=== PATIENT | female | born 1950 | race African-American/Black ===

== ENCOUNTER 2016-12-27 07:54 | Emergency (ER) | payer OTHER ==
[~2016-12-27] VITALS: Ht 162.6 cm; Wt 78.2 kg
[~2016-12-27 07:54] MED LIST: ALBU2.5V3 NEB; ALBU8.5H3 INH; AMLO-147 PO; ASPI81TA3 PO; HYDR-902 PO; LOSA1TAB19 PO; METF500T4 PO; TYL500 PO
[2016-12-27 07:57] VITALS: Ht 162.6 cm; Wt 78.2 kg
[2016-12-27] MEDS ORDERED: IBUP400T22 PO (08:53)
[2016-12-27] MEDS ORDERED: SOD CHLORIDE 0.9% 1,000 ML IV STA (09:49)
[2016-12-27] MEDS ORDERED: ALBUTEROL 0.5% (NEB) 2.5 MG/0.5 ML AMP INH STA (09:49)
[2016-12-27] MEDS ORDERED: LIDOCAINE/MYLANTA 40 ML BTL PO STA (09:49)
[2016-12-27] MEDS ORDERED: IPRATROPIUM (NEB) 0.5 MG/2.5 ML AMP INH STA (09:49)
[2016-12-27] MEDS ORDERED: BELLADONNA/PHENOBARBITAL TAB PO STA (09:49)
[2016-12-27] MEDS ORDERED: predniSONE 20 MG TAB PO STA (09:49)
[2016-12-27] MEDS ORDERED: KETOROLAC 15 MG INJ IV STA (09:49)
[2016-12-27] MEDS ORDERED: LEVOFLOXACIN 750MG/D5W (PMX) 150 ML IVPB ONE (10:00)
[2016-12-27 10:39] LABS: ADD SCAN DIFF NO
--- NOTE | 2016-12-27 10:47 | RADRPT ---
PROCEDURE: XR Chest. CLINICAL INDICATION: Hemoptysis TECHNIQUE: Chest AP portable. COMPARISON: 08/13/2016 FINDINGS: The mediastinal structures are unremarkable. There is calcification of the thoracic aorta (consiste nt with atherosclerosis). There is mild cardiomegaly. The pulmonary vascularity is normal. There is mild bibasilar subsegmental atelectasis. The pleural spaces are unremarkable. The osseous structur es are unremarkable. IMPRESSION: Mild cardiomegaly Mild bibasilar subsegmental atelectasis RPTAT: HGDB .Quinn Zapien MD, Date Time Electronically viewed and signed by .Quinn Zapien MD, on 12/27/2016 10:47 .B/
[2016-12-27 10:51] LABS: BASOPHILS % 0.8 % (0.0-2.0); EOSINOPHILS # 0.1 10^3/ul (0.0-0.5); EOSINOPHILS % 2.9 % (0.0-7.0); HEMATOCRIT 34.9 % (37.0-47.0); HEMOGLOBIN 10.4 g/dl (12.0-16.0); LYMPHOCYTES # 1.8 10^3/ul (0.8-2.9); LYMPHOCYTES % 37.1 % (15.0-51.0); MEAN CORPUSCULAR HEMOGLOBIN 24.9 pg (29.0-33.0); MEAN CORPUSCULAR HGB CONC 29.8 g/dl (32.0-37.0); MEAN CORPUSCULAR VOLUME 83.5 fl (82.0-101.0); MEAN PLATELET VOLUME 11.8 fl (7.4-10.4); MONOCYTE # 0.4 10^3/ul (0.3-0.9); MONOCYTES % 7.8 % (0.0-11.0); NEUTROPHIL # 2.5 10^3/ul (1.6-7.5); NEUTROPHILS % 51.2 % (39.0-77.0); PLATELET COUNT 347 10^3/UL (140-415); RED BLOOD COUNT 4.18 10^6/ul (4.20-5.40); RED CELL DISTRIBUTION WIDTH 14.1 % (11.5-14.5); WHITE BLOOD COUNT 4.9 10^3/ul (4.8-10.8)
--- NOTE | 2016-12-27 10:58 | RADRPT ---
PROCEDURE: CT Brain without. CLINICAL INDICATION: Headache, nosebleed. History of aneurysm repair. TECHNIQUE: A CT of the brain was performed on multidetector high-resolution CT scanner utilizing a xial sections from the skull base through the vertex without contrast. The scan was reviewed in sof t tissue brain and high frequency resolution bone algorithm windows. Images were reviewed on a high -resolution PACS workstation. One or more the following does reduction techniques were utilized: Aut omated exposure control, adjustment of the mA/ or kV according to patient's size, or use of iterativ e reconstruction technique. The exam CTDI = 44.81 mGy and the DLP = 720.23 mGy-cm. COMPARISON: Brain CT 09/24/2016. Brain CT 03/19/2016. FINDINGS: The ventricles and sulci are mildly prominent indicative of volume loss. There is no intracranial h emorrhage, mass effect or midline shift. No abnormal intra-axial or extra-axial fluid collections a re seen. The nguyen/white matter differentiation is preserved. 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 There are mild scattered foci of hypoattenuation in the white matter, which are nonspecific in etiol ogy but likely reflect chronic small vessel ischemic changes. There are mild intracranial vascular calcifications consistent with atherosclerosis. The visualized paranasal sinuses are essentially lashonda ar. IMPRESSION: 1. No acute intracranial hemorrhage, transcortical infarction or mass effect. 2. Mild intracranial atherosclerosis and chronic small vessel ischemic changes. 3. Mild generalized cerebral volume loss. 4. 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 RPTAT: HH .Blair Vargas MD, MD Date Time Electronically viewed and signed by .Blair Vargas MD, MD on 12/27/2016 10:58 .N/
[2016-12-27 11:01] VITALS: TEMP 98.6
[2016-12-27 11:01] LABS: CHLORIDE 105 mmol/L (97-110)
[2016-12-27 11:02] LABS: ALBUMIN 3.9 g/dl (3.3-4.9); SODIUM 144 mmol/L (135-144)
[2016-12-27 11:03] LABS: POTASSIUM 3.8 mmol/L (3.5-5.1)
[2016-12-27 11:05] LABS: ALANINE AMINOTRANSFERASE 20 IU/L (13-69); ALBUMIN/GLOBULIN RATIO 1.02; ALKALINE PHOSPHATASE 113 IU/L (42-121); ANION GAP 16 (8-16); ASPARTATE AMINO TRANSFERASE 21 IU/L (15-46); BLOOD UREA NITROGEN 20 mg/dl (7-20); CALCIUM 9.9 mg/dl (8.4-10.2); CARBON DIOXIDE 27 mmol/L (21-31); CREATININE 0.97 mg/dl (0.44-1.00); GLUCOSE 88 mg/dl (70-220); TOTAL PROTEIN 7.7 g/dl (6.1-8.1)
[2016-12-27 11:06] LABS: ADD UMIC NO; URINE BILIRUBIN (Dip) NEGATIVE (NEGATIVE); URINE BLOOD (Dip) NEGATIVE (NEGATIVE); URINE COLOR YELLOW (YELLOW); URINE GLUCOSE (Dip) NEGATIVE (NEGATIVE); URINE KETONES (Dip) NEGATIVE (NEGATIVE); URINE LEUKOCYTE ESTERASE (Dip) NEGATIVE (NEGATIVE); URINE NITRITE (Dip) NEGATIVE (NEGATIVE); URINE TOTAL PROTEIN (Dip) NEGATIVE (NEGATIVE); URINE UROBILINOGEN (Dip) 0.2 E.U./dL (0.1-1.0)
[2016-12-27 11:17] LABS: TROPONIN-I < 0.012 ng/ml (0.00-0.12)
[2016-12-27] MEDS ORDERED: PRED20TA PO (13:12)
[2016-12-27] MEDS ORDERED: LEVO500T72 PO (13:12)
[2016-12-27] MEDS ORDERED: ALBU8.5H3 INH (13:12)
[2016-12-27] MEDS ORDERED: NASO17 NASAL (13:12)
--- NOTE | 2016-12-27 13:24 | ERD ---
ER Documentation Chief Complaint Date/Time DATE: 12/27/16 TIME: 13:14 Chief Complaint de guzman, had brain aneurysm repair in last july, reported hemomptisis x 3 HPI 66-year-old woman with a history of right ANETTE clipping/coiling presents with cough, headache, and congestion. She states she is wheezing and has a history of asthma, but ran out of her albuterol pump. She states with cough she has a headache although she denies other neurologic symptoms such as weakness, slurred speech, or blurry vision. Patient denies chest pain, no calf or leg swelling, no vomiting or diarrhea. ROS All systems reviewed and are negative except as per history of present illness. Medications Home Meds Active Scripts Levofloxacin* (Levaquin*) 500 Mg Tablet, 500 MG PO DAILY for 4 Days, TAB Prov:MIKAEL ARIAS MD 12/27/16 Albuterol Sulfate* (Proair HFA*) 8.5 Gm Hfa.aer.ad, 2 PUFF INH Q6H Y for COUGH, #1 INHALER Prov:MIKAEL ARIAS MD 12/27/16 Mometasone Furoate* (Nasonex*) 50 Mcg/Carnegie - 17 Gm Carnegie.pump, 2 SPRAY NASAL DAILY for NASAL CONGESTION, #1 BOTTLE TO EACH NOSTRIL Prov:MIKAEL ARIAS MD 12/27/16 Prednisone* (Prednisone*) 20 Mg Tab, 40 MG PO DAILY for 4 Days, TAB Prov:MIKAEL ARIAS MD 12/27/16 Reported Medications Ibuprofen* (Motrin*) 400 Mg Tab, 400 MG PO BID Y for PAIN, TAB 12/27/16 Aspirin* (Aspirin* Chew) 81 Mg Tab.chew, 81 MG PO DAILY, TAB.CHEW 08/13/16 Losartan-Hydrochlorothiazide (Losartan-HCTZ) Unknown Strength Tab, 1 TAB PO DAILY, TAB 03/16/16 Albuterol Sulfate* (Albuterol Sulfate* Neb) 0.083%-3 Ml Neb, 1.25 MG NEB Q4 Y for WHEEZING AND SOB, #30 VIAL 11/07/15 Albuterol Sulfate* (Proair HFA*) 8.5 Gm Hfa.aer.ad, 2 PUFF INH Q4H Y for WHEEZING AND SOB, #1 INHALER 11/07/15 Metformin* (Glucophage*) 500 Mg Tab, 500 MG PO BID 05/24/13 Amlodipine Besylate* (Amlodipine Besylate*) 10 Mg Tablet, 10 MG PO DAILY 04/10/12 Discontinued Reported Medications Acetaminophen* (Tylenol*) 500 Mg Tab, 500 MG PO Q4H Y for MILD PAIN LEVEL 1-3, TAB 08/13/16 Discontinued Scripts Hydrocodone/Acetaminophen ([place] 10-325 Tablet) 1 Each Tablet, 1 TAB PO Q6H Y for PAIN, #20 TAB Prov:CAPRI SANDERS MD 09/24/16 Allergies Allergies: Coded Allergies: Penicillins (Verified Allergy, Mild, 12/27/16) PMhx/Soc 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, recurrent dizziness, hypertension, asthma, diabetes mellitus, osteoarthritis of the neck and back History of Surgery: Yes (KNEE REPLACEMENT , KNEE SX- 2004, TUBE ) Anesthesia Reaction: No Hx Neurological Disorder: Yes (DIZZINESS) Hx Respiratory Disorders: No Hx Cardiac Disorders: Yes (HIGH BLOOD PRESSURE) Hx Psychiatric Problems: No Hx Miscellaneous Medical Probl: Yes (ANNEURYSM) Hx Alcohol Use: Yes (OCCASSIONALLY, LAST YEAR WAS THE LAST) Hx Substance Use: No Hx Tobacco Use: Yes (3 STICKS CIGARETTE A DAY LAST WAS LAST NIGHT03-15) Smoking Status: Current some day smoker FmHx Family History: No diabetes Physical Exam Vitals Vital Signs Date Time Temp Pulse Resp B/P Pulse Ox O2 Delivery O2 Flow Rate FiO2 12/27/16 13:56 78 17 133/78 100 Room Air 12/27/16 11:01 Nasal Cannula 2 12/27/16 11:01 98.6 81 15 117/84 97 Room Air 12/27/16 10:08 73 26 94 21 12/27/16 07:57 98.1 89 18 129/91 99 Physical Exam GENERAL: Well-developed, well-nourished, positive nasal congestion, afebrile HEENT: Moist mucous membranes, positive nasal congestion, pink conjunctiva, no cervical spine tenderness or step-off deformities, no goiter, no jaundice or icterus, extraocular movements intact without pain. No submandibular induration , and no pharyngeal erythema NEURO: Alert and oriented 3, cranial nerves II through XII intact bilaterally, pupils equal round reactive to light, no focal deficits or facial asymmetry, sensation intact distally Strength 5/5 in upper and lower extremities bilaterally CARDIAC: Regular rate and rhythm, no murmurs rubs or gallops LUNGS: Mild scattered wheezes bilaterally, no crackles or stridor ABDOMEN: Soft nontender, no guarding, no rigidity, no rebound, no psoas sign no obturator sign. Normoactive bowel sounds SKIN: Warm and dry to touch, no abrasions, contusions, or hematomas, no lacerations, no ecchymosis, no target lesions, and without ulcers EXTREMITIES: No clubbing cyanosis or edema, calves are bilaterally symmetrical, no Homans sign, no popliteal cord sign. Distal pulses equal and bilateral PSYCH: Normal affect without agitation or irritability Result Diagram: 12/27/1685412/27/1655 Results 24 hrs Laboratory Tests Test 12/27/16 08:55 12/27/16 08:58 12/27/16 10:35 Alanine Aminotransferase (ALT/SGPT) 20IU/L Albumin 3.9g/dl Albumin/Globulin Ratio 1.02 Alkaline Phosphatase 113IU/L Anion Gap 16 Aspartate Amino Transf (AST/SGOT) 21IU/L Basophils # 0.010^3/ul Basophils % 0.8% Blood Urea Nitrogen 20mg/dl Calcium Level 9.9mg/dl Carbon Dioxide Level 27mmol/L Chloride Level 105mmol/L Creatinine 0.97mg/dl Direct Bilirubin 0.00mg/dl Eosinophils # 0.110^3/ul Eosinophils % 2.9% Globulin 3.80g/dl Glucose Level 88mg/dl Hematocrit 34.9% Hemoglobin 10.4g/dl Indirect Bilirubin 0.0mg/dl Lipase 77U/L Lymphocytes # 1.810^3/ul Lymphocytes % 37.1% Mean Corpuscular Hemoglobin 24.9pg Mean Corpuscular Hemoglobin Concent 29.8g/dl Mean Corpuscular Volume 83.5fl Mean Platelet Volume 11.8fl Monocytes # 0.410^3/ul Monocytes % 7.8% Neutrophils # 2.510^3/ul Neutrophils % 51.2% Nucleated Red Blood Cells # 0.010^3/ul Nucleated Red Blood Cells % 0.0/100WBC Platelet Count 73117^3/UL Potassium Level 3.8mmol/L Red Blood Count 4.1810^6/ul Red Cell Distribution Width 14.1% Sodium Level 144mmol/L Total Bilirubin 0.0mg/dl Total Protein 7.7g/dl Troponin I < 0.012ng/ml White Blood Count 4.910^3/ul Bedside Glucose 98mg/dL Urine Bilirubin NEGATIVE Urine Clarity CLEAR Urine Color YELLOW Urine Glucose NEGATIVE% Urine Hemoglobin NEGATIVE Urine Ketones NEGATIVE Urine Leukocyte Esterase NEGATIVE Urine Nitrite NEGATIVE Urine Specific [place] 1.010 Urine Total Protein NEGATIVE Urine Urobilinogen 0.2 E.U./dL Urine pH 6.5 Current Medications Medications (Trade) Dose Ordered Sig/Humaira Route PRN Reason Start Time Stop Time Status Last Admin Dose Admin Albuterol (Proventil 0.5% (Neb)) 10 mg ONCE STAT INH 12/27/16 09:49 12/27/16 09:52 DC 12/27/16 10:08 Ipratropium [place] (Atrovent 0.02% (Neb)) 1 mg ONCE STAT INH 12/27/16 09:49 12/27/16 09:52 DC 12/27/16 10:07 Prednisone 60 mg 60 mg ONCE STAT PO 12/27/16 09:49 12/27/16 09:52 DC 12/27/16 10:30 Sodium Chloride (NS) 1,000 ml @ 1,000 mls/hr Q1H STAT IV 12/27/16 09:49 12/27/16 10:48 DC 12/27/16 10:39 Miscellaneous Medication (Gi Cocktail (2)) 40 ml ONCE STAT PO 12/27/16 09:49 12/27/16 09:52 DC 12/27/16 10:32 [place]onna/ Phenobarbital () 2 tab ONCE STAT PO 12/27/16 09:49 12/27/16 09:52 DC 12/27/16 10:32 Ketorolac Tromethamine 15 mg 15 mg ONCE STAT IV 12/27/16 09:49 12/27/16 09:52 DC 12/27/16 10:31 Levofloxacin/ Dextrose (Levaquin 750 Mg/ D5W 150 ml (Pmx)) 150 ml @ 100 mls/hr ONCE ONCE IVPB 12/27/16 10:00 12/27/16 11:29 DC 12/27/16 10:30 Procedures/MDM IV line was established patient was placed on secured entrance monitor rhythm strip revealed a sinus rhythm at about 80 bpm with upright P and T waves. Patient was afebrile. CT scan of the brain was performed and was negative for acute bleed mass or shift. One AP view of the chest performed, read by me reveals no acute infiltrates, normal mediastinum, sharp costophrenic and cardiac borders, no air under the diaphragm. Otherwise unremarkable chest x-ray. I administered 1 L normal saline intravenously, Toradol 15 mg IV, GI cocktail 30 cc p.o., albuterol 10 mg via nebulizer, ipratropium 1 mg via nebulizer, prednisone 40 mg p.o. with good effect. Patient also received levofloxacin 750 mg IV 1. EKG performed, read by me revealed a normal sinus rhythm 80 bpm, normal axis, narrow QRS complex, no concerning ST elevations or depressions noted. CBC is unremarkable, electrolytes reveal a BUN/creatinine of 20/1, liver function tests were normal, troponin was negative. Differential diagnoses considered, included but not limited to acute coronary syndrome, pulmonary embolism, aortic dissection, abdominal aortic aneurysm, sepsis, stroke, meningitis, encephalitis, pneumonia, appendicitis, cholecystitis , bowel obstruction, pyelonephritis, nephrolithiasis, cystitis, as well as metabolic, hematologic, and electrolyte abnormalities. As well as abscess, cellulitis, fractures, and dislocations. Patient feels much better at this time, and vital signs are normal, symptoms have improved. I did give strict instructions to return to the ED if symptoms continue or worsen, patient will otherwise follow-up with primary care physician. Patient understood instructions and agreed to plan. Departure Diagnosis: Primary Impression: Headache Headache type: tension-type Headache chronicity pattern: unspecified pattern Intractability: not intractable Qualified Code: G44.209 - Tension- type headache, not intractable, unspecified chronicity pattern Additional Impression: Bronchitis Condition: Good Patient Instructions: Bronchitis With Wheezing (Adult), Headache, Tension MIKAEL ARIAS MD Dec 27, 2016 13:24
[2016-12-27 13:56] VITALS: BP 133/78; PULSE 78; RESP 17
== END 2016-12-27 13:58 | disposition home or self-care (01) ==
LOC: E/R 07:54
DX: G44.209 Tension-type headache, unspecified, not intractable (principal); F17.210 Nicotine dependence, cigarettes, uncomplicated; I10 Essential (primary) hypertension; E11.9 Type 2 diabetes mellitus without complications; J45.909 Unspecified asthma, uncomplicated; J20.9 Acute bronchitis, unspecified; R04.2 Hemoptysis; Z79.84 Long term (current) use of oral hypoglycemic drugs; Z79.82 Long term (current) use of aspirin
CPT/HCPCS: 36415; 70450; 71010; 80053; 81003; 82962; 83690; 84484; 85025; 87400; 94664; 96374; 96375; 99285; J1885; J1956; J7030; J7512

== ENCOUNTER 2017-06-11 08:39 | Emergency (ER) | payer OTHER ==
[~2017-06-11] VITALS: Wt 76.8 kg
[~2017-06-11 08:39] MED LIST changes: -HYDR-902 PO; +IBUP400T22 PO; +LEVO500T72 PO; +NASO17 NASAL; +PRED20TA PO; -TYL500 PO
[2017-06-11] MEDS ORDERED: KETOROLAC 30 MG INJ IM STA (09:40)
--- NOTE | 2017-06-11 10:04 | ERD ---
ER Documentation Chief Complaint Date/Time DATE: 06/11/17 TIME: 09:59 Chief Complaint neck to r. shoulder pain HPI This a 67-year-old female who presents to the emergency department today complaining of neck pain and right shoulder pain. Patient states that she has had this problem in the past and does see a pain management doctor but was unable to call them this morning. States that she had a procedure yesterday done at [facility] because she was told that she had "cholesterol they may need to check to make sure she had an aneurysm peer " ROS All systems reviewed and are negative except as per history of present illness. Medications Home Meds Active Scripts Levofloxacin* (Levaquin*) 500 Mg Tablet, 500 MG PO DAILY for 4 Days, TAB Prov:MIKAEL ARIAS MD 12/27/16 Albuterol Sulfate* (Proair HFA*) 8.5 Gm Hfa.aer.ad, 2 PUFF INH Q6H Y for COUGH, #1 INHALER Prov:MIKAEL ARIAS MD 12/27/16 Mometasone Furoate* (Nasonex*) 50 Mcg/[place] - 17 Gm [place].pump, 2 SPRAY NASAL DAILY for NASAL CONGESTION, #1 BOTTLE TO EACH NOSTRIL Prov:MIKAEL ARIAS MD 12/27/16 Prednisone* (Prednisone*) 20 Mg Tab, 40 MG PO DAILY for 4 Days, TAB Prov:MIKAEL ARIAS MD 12/27/16 Reported Medications Ibuprofen* (Motrin*) 400 Mg Tab, 400 MG PO BID Y for PAIN, TAB 12/27/16 Aspirin* (Aspirin* Chew) 81 Mg Tab.chew, 81 MG PO DAILY, TAB.CHEW 08/13/16 Losartan-Hydrochlorothiazide (Losartan-HCTZ) Unknown Strength Tab, 1 TAB PO DAILY, TAB 03/16/16 Albuterol Sulfate* (Albuterol Sulfate* Neb) 0.083%-3 Ml Neb, 1.25 MG NEB Q4 Y for WHEEZING AND SOB, #30 VIAL 11/07/15 Albuterol Sulfate* (Proair HFA*) 8.5 Gm Hfa.aer.ad, 2 PUFF INH Q4H Y for WHEEZING AND SOB, #1 INHALER 11/07/15 Metformin* (Glucophage*) 500 Mg Tab, 500 MG PO BID 8/5/13 Amlodipine Besylate* (Amlodipine Besylate*) 10 Mg Tablet, 10 MG PO DAILY 04/10/12 Allergies Allergies: Coded Allergies: Penicillins (Verified Allergy, Mild, 12/27/16) PMhx/Soc History of Surgery: Yes (KNEE REPLACEMENT , KNEE SX- 2004, TUBE ) Anesthesia Reaction: No Hx Neurological Disorder: Yes (DIZZINESS) Hx Respiratory Disorders: No Hx Cardiac Disorders: Yes (HIGH BLOOD PRESSURE) Hx Psychiatric Problems: No Hx Miscellaneous Medical Probl: Yes (ANNEURYSM) Hx Alcohol Use: Yes (OCCASSIONALLY, LAST YEAR WAS THE LAST) Hx Substance Use: No Hx Tobacco Use: Yes (3 STICKS CIGARETTE A DAY LAST WAS LAST NIGHT03-15) Smoking Status: Current every day smoker Physical Exam Vitals Vital Signs Date Time Temp Pulse Resp B/P Pulse Ox O2 Delivery O2 Flow Rate FiO2 06/11/17 08:41 98.0 97 20 154/86 99 Physical Exam Const: Sitting in wheelchair, no acute distress Head: Atraumatic Eyes: Normal Conjunctiva ENT: Normal External Ears, Nose and Mouth. Neck: Full range of motion..~ No meningismus. Full active range of motion. Pulses 2+. Distal neurovascularly intact Resp: Clear to auscultation bilaterally Cardio: Regular rate and rhythm, no murmurs Abd: Soft, non tender, non distended. Normal bowel sounds Skin: No petechiae or rashes Back: No midline or flank tenderness Ext: No cyanosis, or edema. Right arm with decreased range of motion secondary to pain. Pulses 2+. Distal neurovascularly intact Neur: Awake and alert Psych: Normal Mood and Affect Results 24 hrs Current Medications Medications (Trade) Dose Ordered Sig/Humaira Route PRN Reason Start Time Stop Time Status Last Admin Dose Admin Ketorolac Tromethamine (Toradol) 30 mg ONCE STAT IM 06/11/17 09:40 06/11/17 09:42 DC 06/11/17 09:56 Procedures/MDM This 67-year-old female who presents emergency department today complaining of right shoulder and right neck pain that is increased this morning when she woke up. Patient does have a history of degenerative disc disease and scoliosis as well as tendinitis in her right shoulder for which she has been seen by an customer sales specialist. Patient also has a pain management doctor but is unsure of the name. Patient did report having a procedure done yesterday. Patient brought paperwork with her and she had a procedure done by the steam pressure chamber operator at [facility], Dr. Bobby Ramachandran. It appears that patient was evaluated for an aneurysm which they went up through her groin. Patient has decreased range of motion her shoulder secondary to pain however patient has a history of chronic pain. Her vital signs are stable. Patient does have good pulses. Do not feel the patient requires further workup or imaging at this time. Low suspicion for acute fracture dislocation, abscess, cauda equina, acute stroke, hemorrhage Symptoms at this time is consistent with acute on chronic exacerbation of pain Patient was given a Toradol injection here in the emergency department. She states that she usually takes half of Flora and Tylenol at home. I did place a call to the pain management doctor of the number that she gave me and it appears that her doctor's name is Diana De La Cruz. Patient was instructed to call the doctor today to try to be seen earlier than Friday which is her next scheduled visit. She was instructed to take her usual pain medication at home. Discussed the patient with Dr. Hernandez and he is in agreement with the plan. Departure Diagnosis: Primary Impression: Pain Condition: Fair Patient Instructions: Pain Management Additional Instructions: Call your primary care doctor TOMORROW for an appointment during the next 1-2 days.See the doctor sooner or return here if your condition worsens before your appointment time. Call your pain management doctor today to try to be seen sooner Take your usual pain medications ROBBIE CORREIA PA-C Jun 11, 2017 10:03
== END 2017-06-11 10:00 | disposition home or self-care (01) ==
LOC: FTE 08:39
DX: M54.2 Cervicalgia (principal); F17.210 Nicotine dependence, cigarettes, uncomplicated; M25.511 Pain in right shoulder; Z96.651 Presence of right artificial knee joint; Z79.82 Long term (current) use of aspirin; Z79.84 Long term (current) use of oral hypoglycemic drugs
CPT/HCPCS: 96372; 99284; J1885

== ENCOUNTER 2018-08-20 13:12 | Emergency (ER) | END 2018-08-20 18:35 | disposition home or self-care (01) ==

== ENCOUNTER 2018-10-08 17:51 | Emergency (ER) | END 2018-10-08 19:39 | disposition home or self-care (01) ==

== ENCOUNTER 2018-10-10 10:19 | Emergency (ER) | END 2018-10-10 13:53 | disposition home or self-care (01) ==

== ENCOUNTER 2018-12-23 01:13 | Emergency (ER) | payer OTHER ==
[~2018-12-23] VITALS: Ht 152.4 cm; Wt 75.0 kg
[~2018-12-23 01:13] MED LIST changes: +ACET-141 PO; +ALBU18HF INHALATION; -ALBU2.5V3 NEB; -ALBU8.5H3 INH; +ASPI-817 PO; -ASPI81TA3 PO; +ATOR20TA38 PO; +CALC-834 PO; +DIAZ5TAB PO; +DOCU-144 PO; +HYDR-4011 PO; +HYDR-4012 PO; -IBUP400T22 PO; -LEVO500T72 PO; -LOSA1TAB19 PO; +LOSA1TAB25 PO; +MELO15TA30 PO; -METF500T4 PO; -NASO17 NASAL; +PRAS10TA6 PO; -PRED20TA PO
[2018-12-23 01:43] VITALS: Ht 152.4 cm; Wt 75.0 kg
[2018-12-23] MEDS ORDERED: SOD CHLORIDE 0.9% 500 ML IV STA (01:52)
[2018-12-23] MEDS ORDERED: ONDANSETRON 4 MG INJ IV STA (01:57)
[2018-12-23] MEDS ORDERED: morphine 4 MG/ML VIAL IV STA (01:57)
[2018-12-23] MEDS ORDERED: NAPROXEN 500 MG TAB PO ONE (02:30)
[2018-12-23] MEDS ORDERED: DIAZ5TAB4 PO (02:46)
[2018-12-23] MEDS ORDERED: NAPR-985 PO (03:43)
--- NOTE | 2018-12-23 03:46 | ERD ---
ER Documentation Chief Complaint Chief Complaint dizziness with left arm numbness x 5 hours HPI This is a 68-year-old female with left wrist pain after she lifted her walker earlier today. She denies any nausea or vomiting. She denies any dizziness this is stated in the triage. She denies any other current complaints. Pain is mild to moderate intensity worse with movement. Denies any other current issues ROS All systems reviewed and are negative except as per history of present illness. Medications Home Meds Active Scripts Naproxen* (Naprosyn*) 500 Mg Tablet, 500 MG PO BID PRN for PAIN AND/OR INFLAMMATION, #30 TAB Prov:KENNY SHANKAR 12/23/18 Diazepam* (Valium*) 5 Mg Tablet, 5 MG PO Q8 PRN for MUSCLE SPASMS, #8 TAB Prov:YAMINI GARSIA MD 10/10/18 Reported Medications Diazepam* (Diazepam*) 5 Mg Tablet, 5 MG PO, TAB 12/23/18 Albuterol Sulfate* (Ventolin HFA*) 18 Gm Hfa.aer.ad, 2 PUFF INHALATION Q4H, #1 INHALER 10/10/18 Losartan-Hydrochlorothiazide (Losartan-HCTZ) 100-25 Mg Tab, 1 TAB PO DAILY, TAB 10/10/18 Docusate Sodium* (Colace*) 100 Mg Capsule, 100 MG PO BID, #60 CAP 10/10/18 Calcium Carbonate/Vitamin D3 (Calcium 600 + Vit D 400 Tablet) 1 Each Tablet, 1 EACH PO DAILY, TAB 10/10/18 Amlodipine Besylate* (Amlodipine Besylate*) 10 Mg Tablet, 10 MG PO DAILY, #30 TAB 10/10/18 Aspirin* (Aspirin* EC) 81 Mg Tablet.dr, 81 MG PO DAILY, TAB 10/10/18 Prasugrel Hydrochloride* (Effient*) 10 Mg Tablet, 10 MG PO Q OTHER DAY, TAB 10/10/18 Atorvastatin Calcium* (Atorvastatin Calcium*) 20 Mg Tablet, 20 MG PO QHS, #30 TAB 10/10/18 Hydrocodone/Acetaminophen ([place] 7.5-325 Tablet) 1 Each Tablet, 1 EACH PO DAILY, TAB 10/10/18 Discontinued Reported Medications Hydrocodone/Acetaminophen ([place] 5-325 Tablet) 1 Each Tablet, 1 EACH PO Q6H PRN for PAIN, TAB 10/10/18 Acetaminophen* (Acetaminophen*) 500 MG Extra Strength Tablet, 500 MG PO Q6H PRN for PAIN AND OR ELEVATED TEMP, TAB 10/10/18 Meloxicam* (Mobic*) 15 Mg Tablet, 15 MG PO DAILY, #30 TAB 10/10/18 Allergies Allergies: Coded Allergies: Penicillins (Unverified Allergy, Mild, 12/23/18) PMhx/Soc History of Surgery: Yes (KNEE REPLACEMENT , KNEE SX- 2004, TUBE) Anesthesia Reaction: No Hx Neurological Disorder: Yes (DIZZINESS) Hx Respiratory Disorders: No Hx Cardiac Disorders: Yes (HIGH BLOOD PRESSURE) Hx Psychiatric Problems: No Hx Miscellaneous Medical Probl: Yes (ANNEURYSM) Hx Alcohol Use: Yes (OCCASSIONALLY, LAST YEAR WAS THE LAST) Hx Substance Use: No Hx Tobacco Use: Yes (3 STICKS CIGARETTE A DAY LAST WAS LAST NIGHT03-15) Smoking Status: Current every day smoker Physical Exam Vitals Vital Signs Date Temp Pulse Resp B/P (MAP) Pulse Ox O2 O2 Flow FiO2 Time Delivery Rate 12/23/18 98.8 74 23 130/89 100 01:43 (103) Physical Exam Const: No acute distress Head: Atraumatic Eyes: Normal Conjunctiva ENT: Normal External Ears, Nose and Mouth. Neck: Full range of motion. No meningismus. Resp: Clear to auscultation bilaterally Cardio: Regular rate and rhythm, no murmurs Abd: Soft, non tender, non distended. Normal bowel sounds Skin: No petechiae or rashes Back: No midline or flank tenderness Ext: No cyanosis, or edema Neur: Awake and alert Psych: Normal Mood and Affect Results 24 hrs Current Medications Medications Dose Sig/Humaira Start Time Status Last (Trade) Ordered Route PRN Stop Time Admin Dose Reason Admin Sodium 500 ml @ Q1H STAT 12/23/18 DC Chloride 500 mls/hr IV 01:52 12/23/18 02:07 Morphine 4 mg ONCE STAT 12/23/18 DC Sulfate IV 01:57 12/23/18 (morphine) 02:07 Ondansetron 4 mg ONCE STAT 12/23/18 DC HCl (Zofran IV 01:57 12/23/18 Inj) 02:07 Naproxen 500 mg ONCE ONCE 12/23/18 DC 12/23/18 (Naprosyn) PO 02:30 12/23/18 02:42 02:31 Procedures/MDM X-ray Wrist 3V Interpreted by me: Scaphoid: [Normal] Bones: [No fracture] Joints: [No dislocation] Foreign body: [None] Medical decision makin-year-old female with wrist pain. At this point is clinically stable. Patient will be discharged home. Advised follow-up PCP for possible outpatient orthopedic surgery Departure Diagnosis: Primary Impression: Wrist injury Encounter type: initial encounter Laterality: unspecified laterality Qualified Codes: S69.90XA - Unspecified injury of unspecified wrist, hand and finger(s), initial encounter Condition: Stable Patient Instructions: Wrist Sprain KENNY SHANKAR Dec 23, 2018 03:46
[2018-12-23 03:56] VITALS: BP 143/80; PULSE 83; RESP 17
== END 2018-12-23 03:57 | disposition home or self-care (01) ==
LOC: E/R 01:13
DX: S69.92XA Unspecified injury of left wrist, hand and finger(s), initial encounter (principal); F17.210 Nicotine dependence, cigarettes, uncomplicated; I10 Essential (primary) hypertension; X50.0XXA Overexertion from strenuous movement or load, initial encounter; Y92.9 Unspecified place or not applicable; Z79.82 Long term (current) use of aspirin; Z96.652 Presence of left artificial knee joint
CPT/HCPCS: 73110; 99283; J7040

== ENCOUNTER 2019-01-13 11:11 | Emergency (ER) | payer OTHER ==
[~2019-01-13] VITALS: Wt 89.0 kg
[~2019-01-13 11:11] MED LIST changes: -ACET-141 PO; +DIAZ5TAB4 PO; -HYDR-4011 PO; -MELO15TA30 PO; +NAPR-985 PO
[2019-01-13] MEDS ORDERED: BENZONATATE 100 MG CAP PO ONE (17:30)
[2019-01-13] MEDS ORDERED: ASPI-817 PO (17:39)
[2019-01-13] MEDS ORDERED: HYDR-4012 PO (17:40)
[2019-01-13] MEDS ORDERED: CALC-834 PO (17:41)
[2019-01-13] MEDS ORDERED: PRAS10TA6 PO (17:42)
[2019-01-13] MEDS ORDERED: MELO15TA30 PO (17:43)
[2019-01-13] MEDS ORDERED: LOSA1TAB25 PO (17:43)
[2019-01-13] MEDS ORDERED: AMLO-147 PO (17:43)
[2019-01-13] MEDS ORDERED: ALBU18HF INHALATION (17:45)
[2019-01-13] MEDS ORDERED: BENZ-6 PO (17:56)
[2019-01-13] MEDS ORDERED: ATOR20TA38 PO (17:56)
--- NOTE | 2019-01-13 17:59 | ERD ---
ER Documentation Chief Complaint Chief Complaint COUGH SINCE FRIDAY, CHEST PAINS HPI Patient is a 68-year-old female with asthma who presents with a cough. The patient said that they started doing tar on the roof next to her house on Friday. She started with a cough after smelling the tire. She felt like her asthma and bronchitis was acting up. She started with chest pain yesterday after coughing. She took [place] this morning which she takes chronically for her back pain. She has not called her primary doctor as of yet. Upon review of old medical records the patient has multiple visits to the ER for various complaints. ROS All systems reviewed and are negative except as per history of present illness. Medications Home Meds Active Scripts Benzonatate* (Tessalon Perle*) 100 Mg Capsule, 100 MG PO Q8H PRN for COUGH, #30 CAP Prov:ADRIENNE CASON MD 01/13/19 Reported Medications Atorvastatin Calcium* (Atorvastatin Calcium*) 20 Mg Tablet, 20 MG PO QHS, #30 TAB 01/13/19 Albuterol Sulfate* (Ventolin HFA*) 18 Gm Hfa.aer.ad, 2 PUFF INHALATION Q4H, #1 INHALER 01/13/19 Meloxicam* (Mobic*) 15 Mg Tablet, 15 MG PO DAILY, #30 TAB 01/13/19 Amlodipine Besylate* (Amlodipine Besylate*) 10 Mg Tablet, 10 MG PO DAILY, #30 TAB 01/13/19 Losartan-Hydrochlorothiazide (Losartan-HCTZ) 100-25 Mg Tab, 1 TAB PO DAILY, TAB 01/13/19 Prasugrel Hydrochloride* (Effient*) 10 Mg Tablet, 10 MG PO Q OTHER DAY, TAB 01/13/19 Calcium Carbonate/Vitamin D3 (Calcium 600 + Vit D 400 Tablet) 1 Each Tablet, 1 EACH PO BID, TAB 01/13/19 Hydrocodone/Acetaminophen ([place] 7.5-325 Tablet) 1 Each Tablet, 1 EACH PO BID, TAB 01/13/19 Aspirin* (Aspirin* EC) 81 Mg Tablet.dr, 81 MG PO DAILY, TAB 01/13/19 Discontinued Reported Medications Diazepam* (Diazepam*) 5 Mg Tablet, 5 MG PO, TAB 12/23/18 Albuterol Sulfate* (Ventolin HFA*) 18 Gm Hfa.aer.ad, 2 PUFF INHALATION Q4H, #1 INHALER 10/10/18 Losartan-Hydrochlorothiazide (Losartan-HCTZ) 100-25 Mg Tab, 1 TAB PO DAILY, TAB 10/10/18 Docusate Sodium* (Colace*) 100 Mg Capsule, 100 MG PO BID, #60 CAP 10/10/18 Calcium Carbonate/Vitamin D3 (Calcium 600 + Vit D 400 Tablet) 1 Each Tablet, 1 EACH PO DAILY, TAB 10/10/18 Amlodipine Besylate* (Amlodipine Besylate*) 10 Mg Tablet, 10 MG PO DAILY, #30 TAB 10/10/18 Aspirin* (Aspirin* EC) 81 Mg Tablet.dr, 81 MG PO DAILY, TAB 10/10/18 Prasugrel Hydrochloride* (Effient*) 10 Mg Tablet, 10 MG PO Q OTHER DAY, TAB 10/10/18 Atorvastatin Calcium* (Atorvastatin Calcium*) 20 Mg Tablet, 20 MG PO QHS, #30 TAB 10/10/18 Hydrocodone/Acetaminophen ([place] 7.5-325 Tablet) 1 Each Tablet, 1 EACH PO DAILY, TAB 10/10/18 Discontinued Scripts Naproxen* (Naprosyn*) 500 Mg Tablet, 500 MG PO BID PRN for PAIN AND/OR INFLAMMATION, #30 TAB Prov:KENNY SHANKAR 12/23/18 Diazepam* (Valium*) 5 Mg Tablet, 5 MG PO Q8 PRN for MUSCLE SPASMS, #8 TAB Prov:YAMINI GARSIA MD 10/10/18 Allergies Allergies: Coded Allergies: Penicillins (Unverified Allergy, Mild, 01/13/19) PMhx/Soc History of Surgery: Yes (KNEE REPLACEMENT , KNEE SX- 2004, TUBE) Anesthesia Reaction: No Hx Neurological Disorder: Yes (DIZZINESS) Hx Respiratory Disorders: No Hx Cardiac Disorders: Yes (HIGH BLOOD PRESSURE) Hx Psychiatric Problems: No Hx Miscellaneous Medical Probl: Yes (ANEURYSM) Hx Alcohol Use: Yes (OCCASIONALLY) Hx Substance Use: No Hx Tobacco Use: Yes (3 STICKS CIGARETTE A DAY LAST WAS LAST NIGHT03-15) Smoking Status: Current every day smoker FmHx Family History: diabetes Physical Exam Vitals Vital Signs Date Temp Pulse Resp B/P (MAP) Pulse Ox O2 O2 Flow FiO2 Time Delivery Rate 01/13/19 97.2 80 18 136/69 99 11:15 (91) Physical Exam Const: No acute distress Head: Atraumatic Eyes: Normal Conjunctiva ENT: Normal External Ears, Nose and Mouth. Neck: Full range of motion. No meningismus. Resp: Clear to auscultation bilaterally Cardio: Regular rate and rhythm, no murmurs Abd: Soft, non tender, non distended. Normal bowel sounds Skin: No petechiae or rashes Back: No midline or flank tenderness Ext: No cyanosis, or edema Neur: Awake and alert Psych: Normal Mood and Affect Results 24 hrs Current Medications Medications Dose Sig/[place] Start Time Status Last (Trade) Ordered Route PRN Stop Time Admin Dose Reason Admin Benzonatate 200 mg ONCE ONCE 01/13/19 DC 01/13/19 (Tessalon) PO 17:30 17:33 01/13/19 17:31 Procedures/MDM EKG read by me: Rate/Rhythm: Regular rate and rhythm at a rate of 83 Intervals: Normal Impression: No evidence of ischemia or arrhythmia Chest x-ray negative per radiology. Smoking Cessation Therapy: Pt. was lectured for greater than 3 minutes on the health risks of continued smoking and the benefits of cessation. She is a 68-year-old female who presents with cough and chest pain. EKG was negative. Chest x-ray was negative. At this point I doubt pneumonia, pneumothorax, pulmonary embolism, or aortic dissection. I do not that the patient requires antibiotics at this time. She will be treated with Tessalon for cough and was given a dose in the emergency department and feels better. She will need to follow-up with her primary doctor within 1 week for reevaluation. Departure Diagnosis: Primary Impression: Cough Condition: Fair Patient Instructions: Airway Clearance: Coughing Techniques Referrals: (Family) Additional Instructions: Call your primary care doctor TOMORROW for an appointment during the next 1 WEEK.Tell the jewel hole finish opener that you were referred from this facility.See the doctor sooner or return here if your condition worsens before your appointment time. ADRIENNE CASON MD Jan 13, 2019 17:59
[2019-01-13 18:21] VITALS: BP 128/75; PULSE 78; RESP 18
== END 2019-01-13 18:23 | disposition home or self-care (01) ==
LOC: E/R 11:11
DX: R05 Cough (principal); J45.909 Unspecified asthma, uncomplicated; F17.210 Nicotine dependence, cigarettes, uncomplicated; R07.9 Chest pain, unspecified; Z79.82 Long term (current) use of aspirin; Z96.659 Presence of unspecified artificial knee joint
CPT/HCPCS: 71045; 93005

== ENCOUNTER 2019-03-03 10:10 | Day surgery (SDC) | payer OTHER ==
[2019-03-03] VITALS (10 sets, daily range): BP systolic 115–148; BP diastolic 62–77; PULSE 64–78; RESP 11–18
[~2019-03-03 10:10] MED LIST changes: +BENZ-6 PO; -DIAZ5TAB PO; -DIAZ5TAB4 PO; -DOCU-144 PO; +MELO15TA30 PO; -NAPR-985 PO
[2019-03-03] MEDS ORDERED: IODIXANOL LOCM 100 ML BTL ONE (11:57)
[2019-03-03] MEDS ORDERED: HEPARIN 1000 UNITS/NS (A-LINE) 1,000 ML ONE (11:57)
[2019-03-03] MEDS ORDERED: LIDOCAINE 1% (MDV) 20 ML INJ ONE (11:57)
[2019-03-03] MEDS ORDERED: MIDAZOLAM 1 MG/ML 2 ML INJ ONE (11:57)
[2019-03-03] MEDS ORDERED: FENTAnyl 50 MCG/ML VIAL ONE (11:57)
--- NOTE | 2019-03-03 13:13 | OPR ---
Date/Time of Note Date/Time of Note DATE: 03/03/19 TIME: 13:05 Operative Report Procedure Date: March 03, 2019 Preoperative Diagnosis Right leg pain, PAD Postoperative Diagnosis right leg pain, probable musculoskeletal in origin Operation/Procedure Performed Abdominal aortogram with bilateral leg runoff. Surgeon see signature line Brakes Inspector none Anesthesia Type: moderate sedation Estimated Blood Loss: 0 - 10 ml's Transfusion none Specimen none Grafts/Implants none Complications none Pt Condition Post Procedure: stable Disposition: PACU Indications Right thigh and buttock pain Procedure Description After a timeout was performed and moderate anesthesia was initiated, the left common femoral artery was identified using direct ultrasound guidance. Local anesthetic was infiltrated into the skin and subcutaneous tissue, and a micropuncture system was used to access. The micropuncture was replaced over an .035 bentson wire for a 5F sheath. A local left femoral angiogram regarding the access was performed and a slightly high stick was noted. Next, an omniflush catheter was placed in the distal aorta and a pelvic angiogram was performed followed by bilateral lower extremity arterial runoff angiograms. No intervention was warranted, therefor the bentson was used to remove the omniflush wire and the 5F sheath was removed and pressure was held on the left groin for 10+ minutes to aid in hemostasis. The patient tolerated the procedure and will be transferred to recovery room in stable condition. LOPEZ YUSUF MD March 03, 2019 13:13
[2019-03-03] MEDS ORDERED: ONDANSETRON 4 MG INJ IV PRN (13:30)
[2019-03-03] MEDS ORDERED: HYDROCODONE/APAP (5/325) TAB PO PRN (13:30)
--- NOTE | 2019-03-03 17:43 | RADRPT ---
Vent Rate: 66 bpm RR Interval: 908 msec IN Interval: 208 msec QRS Duration: 91 msec QT Interval: 381 msec QTC Interval: 400 msec P-R-T Patten: 77 - 11 - 34 degrees Sinus rhythm...normal P axis, V-rate 50- 99 Electronically Signed By: Iam eLy
== END 2019-03-03 16:39 | disposition home or self-care (01) ==
LOC: SDS 10:10 → CCL 10:10
PROVIDERS: ATTEND Surgery
DX: I73.9 Peripheral vascular disease, unspecified (principal); I10 Essential (primary) hypertension; M06.9 Rheumatoid arthritis, unspecified; F17.200 Nicotine dependence, unspecified, uncomplicated
CPT/HCPCS: 36200; 75630; 82962; 93005; C1894; J1644; J2250; J3010; Q9967

== ENCOUNTER 2019-07-14 11:49 | Emergency (ER) | payer OTHER ==
[~2019-07-14] VITALS: Ht 157.5 cm; Wt 70.0 kg
[~2019-07-14 11:49] MED LIST changes: -BENZ-6 PO; +DICY10CA40 PO; +HYDR-4011 PO; +ONDA4TAB8 PO; +PRED20TA PO
[2019-07-14 11:58] VITALS: Ht 157.5 cm; Wt 70.0 kg
[2019-07-14] MEDS ORDERED: ALBUTEROL 0.083% (NEB) 2.5 MG/3 ML AMP INH STA (12:51)
[2019-07-14] MEDS ORDERED: IPRATROPIUM (NEB) 0.5 MG/2.5 ML AMP INH STA (12:51)
[2019-07-14] MEDS ORDERED: predniSONE 20 MG TAB PO STA (12:51)
[2019-07-14 15:03] VITALS: BP 113/74; PULSE 82; RESP 20
== END 2019-07-14 15:09 | disposition home or self-care (01) ==
LOC: E/R 11:49
DX: J45.901 Unspecified asthma with (acute) exacerbation (principal); I10 Essential (primary) hypertension; Z96.651 Presence of right artificial knee joint; Z79.82 Long term (current) use of aspirin
CPT/HCPCS: 36415; 71045; 80048; 83880; 84484; 85025; 85610; 85730; 93005; 94664; 99285; J7512